=== PATIENT | male | born 1970 | race Caucasian/White ===

== ENCOUNTER → 2017-02-27 20:54 | Emergency (ER) | payer MEDICARE, MEDICAID ==
[~2017-02-27 20:54] MED LIST: Cyclobenzaprine TAB* 10 MG PO ONE; HYDROcodone/ACETAMIN 5-325 MG* 1 TAB PO ONE; Ketorolac INJ* 60 MG/2 ML VIAL IM ONE; diPHENhydraMINE PO* 25 MG PO ONE
[2017-02-27 21:05] VITALS: BP 136/88
--- NOTE | 2017-02-27 22:30 | ED ---
Back Pain - HPI Summary HPI Summary: Patient presents to ED s/p fall from a standing position after tripping and now endorses cervical and lumbar spine pain with radiation bilaterally to both legs. Previous surgery to lumbar spine. Denies taking any medication. Otherwise healthy. States pain is aching and has progressively worsened since onset. Pain is 8/10. He is ambulating, but with pain. Better with supine position, worse with flexing and extending at the hips. Denies bladder or bowel dysfunction. Denies color or temperature changes. - History of Current Complaint Chief Complaint: EDBackInjuryPain Stated Complaint: FALL BACK PAIN, NECK PAIN Time Seen by Provider: 02/27/17 21:23 Hx Obtained From: Patient Onset/Duration: Sudden Onset Onset/Duration: Started Hours Ago Timing: Constant Back Pain Location: Is Discrete @ - cervical and lumbar spine Severity Initially: Moderate Severity Currently: Moderate Pain Intensity: 8 Pain Scale Used: 0-10 Numeric Character: Aching, Throbbing Aggravating Symptom(s): Movement, Lifting, Bending, Walking Alleviating Symptom(s): Rest, Position Associated Signs And Symptoms: Positive: Numbness, Tingling - Allergies/Home Medications Allergies/Adverse Reactions: Allergies Allergy/AdvReac Type Severity Reaction Status Date / Time Penicillins Allergy Rash Verified 02/27/17 23:09 PMH/Surg Hx/FS Hx/Imm Hx Previously Healthy: Yes Infectious Disease History: No Infectious Disease History: Denies: Traveled Outside the [place] in Last 30 Days - Social History Occupation: Employed Full-time Lives: With Family Alcohol Use: Rare Hx Substance Use: No Substance Use Type: Reports: None Hx Tobacco Use: Yes Smoking Status (MU): Light Every Day Tobacco Smoker Type: Cigarettes Do You Chew or Dip Tobacco: No Have You Chewed or Dipped Tobacco in the LAST YEAR: No Have You Smoked in the Last Year: No Review of Systems Constitutional: Negative Eyes: Negative Cardiovascular: Negative Respiratory: Negative Gastrointestinal: Negative Positive: no symptoms reported, see HPI Positive: Arthralgia, Myalgia Skin: Negative Positive: Weakness, Paresthesia, Numbness All Other Systems Reviewed And Are Negative: Yes Physical Exam Triage Information Reviewed: Yes Vital Signs On Initial Exam: Initial Vitals Temp Pulse Resp BP Pulse Ox 98.4 F 87 16 136/88 99 02/27/17 21:02 02/27/17 21:02 02/27/17 21:02 02/27/17 21:02 02/27/17 21:02 Vital Signs Reviewed: Yes Appearance: Positive: Well-Appearing, No Pain Distress, Well-Nourished Skin: Positive: Warm, Skin Color Reflects Adequate Perfusion Head/Face: Positive: Normal Head/Face Inspection Eyes: Positive: EOMI, MARY Neck: Positive: Nontender, No Lymphadenopathy Respiratory/Lung Sounds: Positive: Clear to Auscultation, Breath Sounds Present Cardiovascular: Positive: Normal, RRR, Pulses are Symmetrical in both Upper and Lower Extremities Musculoskeletal: Positive: Limited @ - flexion and extension of the hips bilaterally Neurological: Positive: Sensory/Motor Intact, Alert, Oriented to Person Place, Time, Speech Normal Psychiatric: Positive: Normal AVPU Assessment: Alert - Luis Eduardo Coma Scale Best Eye Response: 4 - Spontaneous Best Motor Response: 6 - Obeys Commands Best Verbal Response: 5 - Oriented Diagnostics - Vital Signs Vital Signs Temp Pulse Resp BP Pulse Ox 02/27/17 21:45 98.8 F 87 18 136/88 99 02/27/17 21:02 98.4 F 87 16 136/88 99 - Laboratory Lab Statement: Any lab studies that have been ordered have been reviewed, and results considered in the medical decision making process. Back Pain Course/Dx - Course Course Of Treatment: Patient sent to CT. CT shows no acute fx. Moderate degenerative changes with bulging disc facet complex at the c5-c6 and c6-c7 levels causing mild central canal and bilateral neural femoral narrowing at both levels. Patient encouraged to follow up with ortho and his PCP upon return to [place]. He agrees and is OK for discharge. pain management and muscle relaxers rx with return precautions. - Diagnoses Differential Diagnosis/HQI/PQRI: Positive: Compressive Cord Syndrome, Fracture, Herniated Disc, Strain, Sprain Provider Diagnoses: Muscle strain Discharge - Discharge Plan Condition: Stable Disposition: HOME Prescriptions: Cyclobenzaprine TAB* [Flexeril TAB*] 10 mg PO BID PRN #14 tab PRN Reason: Pain Hydrocodone-Acetaminophen [Hydrocodone/Acetaminophen 5-325 mg] 1 tab PO Q4H #12 tab MDD 6 Patient Education Materials: Low Back Strain (ED) Referrals: No Primary Care Phys,NOPCP [Primary Care Provider] - Additional Instructions: Follow up with PCP as needed If symptoms persist, return to ED Dx. Muscle Strain Flexeril: This medication is a muscle relaxant and can help relieve muscle spasms, muscle strain, or pain sensations. Flexeril can cause side effects that may impair your thinking or reactions. Be careful if you drive or do anything that requires you to be awake and alert. Avoid drinking alcohol, which can increase some of the side effects of Flexeril. Ibuprofen 600mg three times daily with meals for discomfort. Return to ED if symptoms worsen or fail to improve, notice worsening swelling, warmth or redness around the joint, develop fever, or pain is uncontrolled with OTC medications. Moist heat to the area for comfort. Warm showers or baths may improve symptoms. It is important to remain mobile as tolerated to prevent stiffening of the joints and delay healing. Follow up with your PCP. If symptoms remain for > 6 weeks, please seek special medical attention from an orthopedic physician. If pain is not well controlled with ibuprofen, you may use the [place] for temporary relief.
--- NOTE | 2017-02-28 07:49 | RAD ---
INDICATION: Neck and lower back pain with tingling in the legs. COMPARISON: None. TECHNIQUE: Axial source images were acquired of the cervical and lumbar spine with coronal and sagittal reformatting. FINDINGS: Cervical spine: There is straightening of the normal cervical lordosis. The vertebral bodies and facet joints are otherwise appropriately aligned. There is no acute fracture or dislocation of the cervical spine. Degenerative changes include loss of intervertebral disc height with marginal osteophyte formation at C4-C6. At the same levels there is uncovertebral hypertrophy, sclerotic change and osteophyte formation best depicted on the coronal plane images. There is no prevertebral soft tissue swelling. There is no hyperdense material in the cervical canal to indicate acute intrathecal hemorrhage. The surrounding cervical musculature is normal. Lumbar spine: Mild degenerative changes of the lumbar spine include loss of intervertebral disc height and mild marginal osteophyte formation. The vertebral bodies and facet joints are appropriately aligned. There is no acute fracture or dislocation. There is no acute inflammatory change in the surrounding soft tissues. There is no hyperdense material in the thecal canal. Beginning at L3/L4 there is the appearance of broad-based disc protrusion and thickening of the ligamentum flavum. Similar degenerative changes seen at L4/L5. The visualized solid organs and bowel are grossly normal. IMPRESSION: DEGENERATIVE CHANGES OF THE CERVICAL AND LUMBAR SPINE WITHOUT ACUTE FRACTURE OR DISLOCATION. IF CLINICALLY WARRANTED, SUPERIOR CHARACTERIZATION OF THE NEURAL AND SURROUNDING SOFT TISSUES CAN BE MADE WITH MRI.
== END | disposition home or self-care (01) ==
LOC: ED 20:54
DX: S13.9XXA Sprain of joints and ligaments of unspecified parts of neck, initial encounter (principal); F17.210 Nicotine dependence, cigarettes, uncomplicated; W22.8XXA Striking against or struck by other objects, initial encounter; Y92.9 Unspecified place or not applicable; Z88.0 Allergy status to penicillin
CPT/HCPCS: 72125; 72131; 96372; 99282; A9270-GY; J1885